=== PATIENT | female | born 1965 | race Caucasian/White ===

== ENCOUNTER 2016-11-17 17:26 | Emergency (ER) | payer SELFPAY ==
--- NOTE | 2016-11-17 19:57 | CT ---
CT OF THE THORACIC SPINE: Date: 11/17/16 COMPARISON: None. HISTORY: Pain. TECHNIQUE: Serial axial CT imaging at 2.5 mm intervals through the thoracic spine without contrast. Coronal and sagittal reformatted imaging obtained. FINDINGS: No significant anterolisthesis or retrolisthesis noted within the thoracic spine. There is an incompletely imaged soft tissue density within the superior mediastinum anteriorly, left of midline, which suggests a substernal thyroid goiter. However, this finding is incompletely image d and thus nonemergent neck CT with IV contrast or nuclear medicine thyroid scan advised. The imaged lung parenchyma demonstrates mild linear scar and/or volume loss within the left lower lo be. Evaluation for central canal and/or neural foraminal stenosis is limited on routine CT. There is no osseous cause of significant central canal stenosis within the thoracic spine. Facet osteophyte form ation on the right noted at T8-9 with mild encroachment on the right neural foramen. No worrisome ly tic or blastic bone lesion. IMPRESSION: No acute osseous abnormality. Incidental findings as detailed above. POS: [facility]
--- NOTE | 2016-11-17 20:03 | CT ---
CERVICAL SPINE CT WITHOUT CONTRAST: Date: 11/17/16 COMPARISON: None. HISTORY: Pain. TECHNIQUE: Serial axial CT imaging at 2.5 mm intervals from skull base through lung apices without contrast. Co kristyn and sagittal reformatted imaging obtained. FINDINGS: Craniocervical junction is intact. Moderate degenerative change at the atlantoaxial interspace noted . No significant anterolisthesis or retrolisthesis noted. The cervicothoracic junction and prevertebra l soft tissues appear grossly unremarkable. The occipital condyles, the dens, and the C1-2 articulat ion appear grossly unremarkable as well. No acute fracture or evidence of dislocation. IMPRESSION: No acute findings. POS: [facility]
--- NOTE | 2016-11-17 21:38 | ERRECORD ---
[facility] EMERGENCY RECORD HPI BACK (20:07 LLDO) CHIEF COMPLAINT: Denies abscess, Denies deformity, Denies drainage from wound, Denies injury, Patient presents for evaluation of pain, Patient presents for evaluation of tenderness, Patient presents for evaluation of see triage note. pain in upper back and neck w/o trauma. several weeks. neck and upper back pains then shoot into both sides of the head. slowlyl worsening. does not recall any trauma. has not been a problem in the past. HISTORIAN: History provided by patient, pt c/o pain, crackling and popping senstion. MECHANISM OF INJURY: No apparent mechanism of injury, No alcohol use associated with this incident, No drug use associated with this incident, No domestic violence associated with this incident, Not work related. LOCATION: Symptoms are localized to the back. QUALITY: Pain is dull in nature, described as aching, described as BECOMES SHARP WITH MOVEMENT OR PALPATION. SEVERITY: Maximum severity of symptoms severe, Currently symptoms are moderate. TIME COURSE: Gradual onset of symptoms, Symptoms are worsening, Symptoms are constant. ASSOCIATED WITH: Associated symptoms reviewed, No associated radiation of pain, No associated sciatica, No associated tingling. EXACERBATED BY: Patient's condition exacerbated by movement, Patient's condition exacerbated by PALPATION. RELIEVED BY: Patient's condition relieved by remaining still. RISK FACTORS: Risk factors reviewed, No malignancy risks identified, Herniated disc risks:, History of herniated disc, No risk factors for thoracic aortic dissection, No abdominal aortic aneurysm risk factors, No epidural bleed risk factors, No epidural abcess risk factors. ROS CONSTITUTIONAL: Negative constitutional review of systems. (20:13 LLDO) EYES: Negative eye review of systems, Historian denies eye pain, denies eye redness, denies eye discharge. (20:18 LLDO) ENT: Negative ears, nose, throat review of systems, Historian denies epistaxis, denies rhinorrhea, denies sinus pain, denies sore throat. (20:18 LLDO) MUSCULOSKELETAL: Historian denies arthralgias, denies back pain, denies deformity, denies fall, denies injury, reports myalgias, reports neck pain. (20:13 LLDO) SKIN: Negative skin review of systems, Historian denies cellulitis, denies rash, denies skin changes, denies skin lesions. (20:18 LLDO) NEUROLOGIC: Historian denies confusion, denies dizziness, denies dysphasia, denies focal weakness, denies gait changes, reports headache, denies irritability, denies lethargy, denies mental status changes, denies paralysis, denies paresthesias, denies seizures, denies sensory changes, denies speech changes, denies tics, denies tremors. (20:13 LLDO) &a-1R&a+25V*p+0X*[id number]*c152B*c15G*c2P*p-0X&a-25V&a+1RName: Nichole Coffey : F51 MedRec: [id number] AcctNum: [id number] Prepared: FriNov 18, 2016 05:43 by Interface Page 1 of 4 pMD [facility] EMERGENCY RECORD HEMO/LYMPHATIC: Normal hematologic/lymphatic system review, Historian denies abnormal blood clotting, denies gum bleeding, denies petechiae. (20:18 LLDO) ALLERGIC/IMMUNOLOGIC: Normal allergy/immunologic system review, Historian denies eczema, denies environmental allergies, denies food allergies. (20:18 LLDO) PSYCHIATRIC: Negative psychiatric review of systems, Historian denies alcohol abuse, denies anxiety, denies depression, denies drug abuse, denies hallucinations. (20:18 LLDO) NOTES: All systems reviewed, negative except as described above. (20:13 LLDO) PAST MEDICAL HISTORY MEDICAL HISTORY: Flu vaccine not up to date, Tetanus not up to date, Pneumococcal vaccine not up to date, Past medical history includes musculoskeletal disorder, CHRONIC HIP PAIN. ARTHRITIS, CHRONIC BACK PAIN, BULGING DISK. (17:48 CJEF) FEMALE SURGICAL HISTORY: Surgical history of hysterectomy. (17:48 CJEF) PSYCHIATRIC HISTORY: No previous psychiatric history. (17:48 CJEF) SOCIAL HISTORY: Patient denies alcohol use, Patient denies drug use, Patient currently uses tobacco, smokes cigarettes, daily, Patient has smoked for 20 years, Patient smokes 1 pack per day, Lives at home, with family, , Patient denies alcohol use, Patient denies drug use, Patient currently uses tobacco, smokes cigarettes, daily. 04-18-15. (17:48 CJEF) NOTES: Nursing records reviewed, Agree with nursing records, Medication list reviewed. (20:17 LLDO) KNOWN ALLERGIES codeine sulfate No Known Allergies (Unconfirmed) No Known Drug Allergies (Unconfirmed) CURRENT MEDICATIONS (17:47 CJEF) traMADol: TABLET : Strength - 50 mg : ORAL Patient Dose: 50 mg Oral 2 times a day.1 TAB IN AM AND 2 TABS AT BEDTIME. VITAL SIGNS VITAL SIGNS: BP: 165/108, Pulse: 81, Resp: 18, Temp: 98.5 (Oral), Pain: 8, O2 sat: 94 on Room Air, Time: 11/17/2016 17:43. (17:43 CJEF) BP: 195/108, Pulse: 72, Resp: 18, Pain: 8, O2 sat: 97 on Room Air, Time: 11/17/2016 18:31. (18:31 CJEF) BP: 158/94, Pulse: 75, Resp: 18, Pain: 8, O2 sat: 97 on Room Air, Time: 11/17/2016 19:18. (19:18 CJEF) BP: 147/80, Pulse: 71, Resp: 18, Pain: 8, O2 sat: 96 on Room Air, Time: 11/17/2016 19:30. (19:30 CJEF) &a-1R&a+25V*p+0X*[id number]*c152B*c15G*c2P*p-0X&a-25V&a+1RName: Nichole Coffey : F51 MedRec: [id number] AcctNum: [id number] Prepared: FriNov 18, 2016 05:43 by Interface Page 2 of 4 pMD [facility] EMERGENCY RECORD BP: 133/85, Pulse: 70, Resp: 18, Pain: 8, O2 sat: 97 on Room Air, Time: 11/17/2016 19:49. (19:49 CJEF) BP: 138/80, Pulse: 75, Resp: 18, O2 sat: 95 on Room Air, Time: 11/17/2016 20:02. (20:02 CJEF) Temp: 98.6 (Oral), Pain: 8, Time: 11/17/2016 20:15. (20:15 CJEF) PHYSICAL EXAM CONSTITUTIONAL: Vital Signs Reviewed, Patient afebrile, Pulse normal, Blood pressure normal, Respiratory rate normal, Patient appears, uncomfortable, Patient appears, in moderate pain distress, Patient alert and oriented to person, place and time, Nursing notes reviewed. (20:15 LLDO) HEAD: Head exam normal, Head exam included findings of head atraumatic, normocephalic. (20:18 LLDO) EYES: pH. (20:15 LLDO) ENT: ENT exam normal, Ear exam normal, Nose exam normal. (20:18 LLDO) NECK: Neck exam included findings of, range of motion limited by pain, Trachea midline, Thyroid normal, no carotid bruits, no meningeal signs, no jugular venous distention, no cervical adenopathy, Tenderness, to the paraspinal muscles. (20:15 LLDO) BACK: Back exam normal, Back exam included findings of normal inspection, range of motion normal. (20:18 LLDO) UPPER EXTREMITY: Upper extremity exam normal, Upper extremity exam included findings of inspection normal, Range of motion normal. (20:18 LLDO) LOWER EXTREMITY: Lower extremity exam normal, Lower extremity exam included findings of inspection normal, Range of motion normal. (20:18 LLDO) NEURO: Neuro exam normal, Neuro exam findings include patient oriented to person, place and time, Speech normal, Mikey coma scale 15. (20:18 LLDO) SKIN: Skin exam normal, Skin exam included findings of skin warm, dry, and normal in color, no rash. (20:18 LLDO) PSYCHIATRIC: Psychiatric exam normal, Psychiatric exam included findings of patient oriented to person place and time, Normal affect. (20:18 LLDO) PROBLEM LIST No recorded problems DIAGNOSIS (20:20 LLDO) FINAL: PRIMARY: CERVICALGIA, ADDITIONAL: Osteoarthritis. PRESCRIPTION (20:22 LLDO) Fiorinal: TABLET : 50 mg-325 mg-40 mg : ORAL : Quantity: 1-2 Unit: tab(s) Route: ORAL Schedule: every 4 hours prn Dispense: 30 Unit: tab(s) May substitute. Refills: 1 . &a-1R&a+25V*p+0X*l0638M*c152B*c15G*c2P*p-0X&a-25V&a+1RName: Erlinda Nichole : F51 MedRec: [id number] AcctNum: [id number] Prepared: FriNov 18, 2016 05:43 by Interface Page 3 of 4 pMD [facility] EMERGENCY RECORD [place]: TABLET : 10 mg-325 mg : ORAL : Quantity: 1 Unit: tab(s) Route: ORAL Schedule: every 4 hours prn Dispense: 30 Unit: tab(s) May substitute. Refills: No Refills POTENTIAL ALLERGY REACTION: 'codeine sulfate [codeine/codeine sulfate]' Override Rationale: Reviewed with patient, pt says can safely take this med. DISPOSITION PATIENT: Disposition Type: Discharge, Disposition: *Discharge Home. (20:20 LLDO) Patient left the department. (20:33 CJANUM) Triplett: CJANUM=POOJA Irby, Denise LLDO=MD Indu, Wolf &a-1R&a+25V*p+0X*[id number]*c152B*c15G*c2P*p-0X&a-25V&a+1RName: Erlinda Nichole : F51 MedRec: [id number] AcctNum: [id number] Prepared: FriNov 18, 2016 05:43 by Interface Page 4 of 4 pMD MTDD
--- NOTE | 2016-11-17 21:48 | PICIS ---
[facility] EMERGENCY RECORD TRIAGE (17:45 CJEF) TRIAGE NOTES: PT REPORTS PAIN THAT STARTED IN BETWEEN THE SHOUDLER BLADES THAT RADIATES TO THE BASE OF HER NECK. PT REPORTS HEADACHE THAT HAS BEEN GOING ON FOR WEEKS. PT ALSO REPORTS THAT SHE HAS PAIN WHEN MOVING HER NECK. (17:45 CJEF) PATIENT: NAME: Nichole Coffey, AGE: 51, GENDER: female, : [facility] 1965, TIME OF GREET: Sun Nov 17, 2016 17:27, PREFERRED LANGUAGE: Czech, ETHNICITY: Not or , FALL RISK: NO, ECODE BILLING MAP: [facility], SSN: [id number], Zip Code: [address], KG WEIGHT: 90.72, PHONE: CELL, , , PERSON ID: [id number], PCP: CHELSIE. (17:45 CJEF) COMPLAINT: NECK PAIN,HEADACHE. (17:45 CJEF) ADMISSION: URGENCY: 4 Non Urgent, ADMISSION SOURCE: Home, TRANSPORT: Walk-in, BED: TRIAGE. (17:45 CJEF) ASSESSMENT: Assessment: HEAD, NECK, AND UPPER BACK PAIN. (17:48 CJEF) PAIN: Patient complains of pain described as, Location HEAD, NECK, AND UPPER BACK. (17:48 CJEF) IMMUNIZATIONS: Flu vaccine not up to date, Tetanus not up to date, Pneumococcal vaccine not up to date. (17:48 CJEF) SIRS SCORING: Heart Rate 55-109 (0), Temp range 96.8-101.1 (0), respiratory rate 12-24 (0), Mental Status altered: no (0), Infection or Suspected Infection: No. (17:48 CJEF) TRIAGE SCREENING: Patient denies suicidal ideation, Patient denies presence of domestic violence. (17:48 CJEF) LMP: LMP: Hysterectomy. (17:48 CJEF) PROVIDERS: TRIAGE NURSE: Denise Irby RN. (17:45 CJEF) VITAL SIGNS: BP 165/108, Pulse 81, Resp 18, Temp 98.5, (Oral), Pain 8, O2 Sat 94, on Room Air, Time 11/17/2016 17:43. (17:43 CJEF) PREVIOUS VISIT ALLERGIES: No Known Drug Allergies. (17:45 CJEF) No Known Drug Allergies. (17:48 CJEF) KNOWN ALLERGIES codeine sulfate No Known Allergies (Unconfirmed) No Known Drug Allergies (Unconfirmed) CURRENT MEDICATIONS (17:47 CJEF) traMADol: TABLET : Strength - 50 mg : ORAL Patient Dose: 50 mg Oral 2 times a day.1 TAB IN AM AND 2 TABS AT BEDTIME. VITAL SIGNS VITAL SIGNS: BP: 165/108, Pulse: 81, Resp: 18, Temp: 98.5 (Oral), Pain: 8, O2 sat: 94 on Room Air, Time: 11/17/2016 17:43. (17:43 CJEF) BP: 195/108, Pulse: 72, Resp: 18, Pain: 8, O2 sat: 97 on Room Air, Time: 11/17/2016 18:31. (18:31 CJEF) BP: 158/94, Pulse: 75, Resp: 18, Pain: 8, O2 sat: 97 on Room Air, Time: &a-1R&a+25V*p+0X*u3104H*c152B*c15G*c2P*p-0X&a-25V&a+1RName: Erlinda Nichole : F51 MedRec: [id number] AcctNum: [id number] Prepared: FriNov 18, 2016 05:49 by Interface Page 1 of 8 pMD [facility] EMERGENCY RECORD 11/17/2016 19:18. (19:18 CJEF) BP: 147/80, Pulse: 71, Resp: 18, Pain: 8, O2 sat: 96 on Room Air, Time: 11/17/2016 19:30. (19:30 CJEF) BP: 133/85, Pulse: 70, Resp: 18, Pain: 8, O2 sat: 97 on Room Air, Time: 11/17/2016 19:49. (19:49 CJEF) BP: 138/80, Pulse: 75, Resp: 18, O2 sat: 95 on Room Air, Time: 11/17/2016 20:02. (20:02 CJEF) Temp: 98.6 (Oral), Pain: 8, Time: 11/17/2016 20:15. (20:15 CJEF) NURSING ASSESSMENT: BACK (17:48 [facility]) CONSTITUTIONAL: Complex assessment performed, Patient arrives ambulatory, Gait steady, History obtained from patient, Patient appears comfortable, Patient cooperative, Patient alert, Oriented to person, place and time, Skin warm, Skin dry, Skin normal in color, Mucous membranes pink, Mucous membranes moist, Patient is well-groomed, PT REPORTS PAIN THAT STARTED IN BETWEEN THE SHOUDLER BLADES THAT RADIATES TO THE BASE OF HER NECK. PT REPORTS HEADACHE THAT HAS BEEN GOING ON FOR WEEKS. PT ALSO REPORTS THAT SHE HAS PAIN WHEN MOVING HER NECK. PAIN: aching pain, to the upper back, UPPER BACK, NECK, AND HEAD PAIN, on a scale 0-10 patient rates pain as 8. BACK: Back assessment findings include tenderness to, bilateral upper back. NECK: Tenderness, diffusely, Pain with range of motion, with extension, with flexion, with rotation to the left, with rotation to the right, Notes: PAIN RADIATES TO HEAD. NOTES: Patient tolerated procedure well. SAFETY: Side rails up, Cart/Stretcher in lowest position, Family at bedside, Call light within reach, Hospital ID band on. NURSING PROCEDURE: DISCHARGE NOTE (20:32 [facility]) DISCHARGE: Patient discharged to home, ambulating without assistance, family driving, accompanied by //partner, Summary of Care printed/ provided, Patient requested and was provided an electronic copy of Discharge Instructions, Transition record given to patient, Discharge instructions given to patient, Simple or moderate discharge teaching performed, Prescriptions given and instructions on side effects given, Medication reconciliation form given, Above person(s) verbalized understanding of discharge instructions and follow-up care, Patient treated and evaluated by physician. BELONGINGS: Belongings remain with patient. NOTES: Patient tolerated procedure well. SAFETY: Side rails up, Cart/Stretcher in lowest position, Family at bedside, Call light within reach, Hospital ID band on. NURSING PROCEDURE: NURSE NOTES NURSES NOTES: Patient in no apparent distress, Patient resting quietly, Notes: PT RESTING IN BED QUIETLY WITH NO DISTRESS &a-1R&a+25V*p+0X*c7488T*c152B*c15G*c2P*p-0X&a-25V&a+1RName: Nihcole Coffey : F51 MedRec: [id number] AcctNum: [id number] Prepared: FriNov 18, 2016 05:49 by Interface Page 2 of 8 pMD [facility] EMERGENCY RECORD NOTED. PT DENIES ANY NEEDS. (19:16 CJEF) Patient in no apparent distress, Patient resting quietly, Notes: PT RESTING IN BED QUIETLY WITH NO DISTRESS NOTED. PT DENIES ANY NEEDS. (19:30 CJEF) Patient in no apparent distress, Patient resting quietly, Notes: PT RESTING IN BED QUIETLY WITH NO DISTRESS NOTED. PT DENIES ANY NEEDS. (19:49 CJEF) Patient in no apparent distress, Patient resting quietly, Notes: PT RESTING IN BED QUIETLY WITH NO DISTRESS NOTED. PT DENIES ANY NEEDS. (20:15 CJEF) NURSING PROCEDURE: TRANSPORT TO TESTS PATIENT IDENTIFIER: Patient actively involved in identification process, Patient's identity verified by patient stating name, Patient's identity verified by patient stating date. (19:00 CJEF) TRANSPORT TO TESTS: Transport indicated to facilitate diagnosis, Patient transported to CT scan, via wheelchair, Accompanied by x-ray water restoration technician. (19:00 CJEF) FOLLOW-UP: After procedure, patient returned to emergency department. (19:13 CJEF) NOTES: Patient tolerated procedure well. (19:00 CJEF) SAFETY: Side rails up, Cart/Stretcher in lowest position, Family at bedside, Call light within reach, Hospital ID band on. (19:00 CJEF) ORDER DETAILS Order Name: CT Cervical Spine WO Con, Status: Active, Time: 18:54 11/17/2016, User: NICK, - Ordered for: MD Griggs Lloyd, - Entered by: MD Griggs Lloyd - Sun Nov 17, 2016 18:54, - Quantity: 1, Order Name: CT Thoracic Spine WO Con, Status: Active, Time: 18:54 11/17/2016, User: NICK, - Ordered for: MD Griggs Lloyd, - Entered by: MD Griggs Lloyd - Sun Nov 17, 2016 18:54, - Quantity: 1. HPI BACK (20:07 LLDO) CHIEF COMPLAINT: Denies abscess, Denies deformity, Denies drainage from wound, Denies injury, Patient presents for evaluation of pain, Patient presents for evaluation of tenderness, Patient presents for evaluation of see triage note. pain in upper back and neck w/o trauma. several weeks. neck and upper back pains then shoot into both sides of the head. slowlyl worsening. does not recall any trauma. has not been a problem in the past. HISTORIAN: History provided by patient, pt c/o pain, crackling and popping senstion. MECHANISM OF INJURY: No apparent mechanism of injury, No alcohol use associated with this incident, No drug use associated with this &a-1R&a+25V*p+0X*n7745Y*c152B*c15G*c2P*p-0X&a-25V&a+1RName: Nichole Coffey : F51 MedRec: [id number] AcctNum: [id number] Prepared: FriNov 18, 2016 05:49 by Interface Page 3 of 8 pMD [facility] EMERGENCY RECORD incident, No domestic violence associated with this incident, Not work related. LOCATION: Symptoms are localized to the back. QUALITY: Pain is dull in nature, described as aching, described as BECOMES SHARP WITH MOVEMENT OR PALPATION. SEVERITY: Maximum severity of symptoms severe, Currently symptoms are moderate. TIME COURSE: Gradual onset of symptoms, Symptoms are worsening, Symptoms are constant. ASSOCIATED WITH: Associated symptoms reviewed, No associated radiation of pain, No associated sciatica, No associated tingling. EXACERBATED BY: Patient's condition exacerbated by movement, Patient's condition exacerbated by PALPATION. RELIEVED BY: Patient's condition relieved by remaining still. RISK FACTORS: Risk factors reviewed, No malignancy risks identified, Herniated disc risks:, History of herniated disc, No risk factors for thoracic aortic dissection, No abdominal aortic aneurysm risk factors, No epidural bleed risk factors, No epidural abcess risk factors. ROS CONSTITUTIONAL: Negative constitutional review of systems. (20:13 LLDO) EYES: Negative eye review of systems, Historian denies eye pain, denies eye redness, denies eye discharge. (20:18 LLDO) ENT: Negative ears, nose, throat review of systems, Historian denies epistaxis, denies rhinorrhea, denies sinus pain, denies sore throat. (20:18 LLDO) MUSCULOSKELETAL: Historian denies arthralgias, denies back pain, denies deformity, denies fall, denies injury, reports myalgias, reports neck pain. (20:13 LLDO) SKIN: Negative skin review of systems, Historian denies cellulitis, denies rash, denies skin changes, denies skin lesions. (20:18 LLDO) NEUROLOGIC: Historian denies confusion, denies dizziness, denies dysphasia, denies focal weakness, denies gait changes, reports headache, denies irritability, denies lethargy, denies mental status changes, denies paralysis, denies paresthesias, denies seizures, denies sensory changes, denies speech changes, denies tics, denies tremors. (20:13 LLDO) HEMO/LYMPHATIC: Normal hematologic/lymphatic system review, Historian denies abnormal blood clotting, denies gum bleeding, denies petechiae. (20:18 LLDO) ALLERGIC/IMMUNOLOGIC: Normal allergy/immunologic system review, Historian denies eczema, denies environmental allergies, denies food allergies. (20:18 LLDO) PSYCHIATRIC: Negative psychiatric review of systems, Historian denies alcohol abuse, denies anxiety, denies depression, denies drug abuse, denies hallucinations. (20:18 LLDO) NOTES: All systems reviewed, negative except as described above. (20:13 LLDO) &a-1R&a+25V*p+0X*y2620K*c152B*c15G*c2P*p-0X&a-25V&a+1RName: Nichole Coffey : F51 MedRec: [id number] AcctNum: [id number] Prepared: FriNov 18, 2016 05:49 by Interface Page 4 of 8 pMD [facility] EMERGENCY RECORD PAST MEDICAL HISTORY MEDICAL HISTORY: Flu vaccine not up to date, Tetanus not up to date, Pneumococcal vaccine not up to date, Past medical history includes musculoskeletal disorder, CHRONIC HIP PAIN. ARTHRITIS, CHRONIC BACK PAIN, BULGING DISK. (17:48 CJEF) FEMALE SURGICAL HISTORY: Surgical history of hysterectomy. (17:48 CJEF) PSYCHIATRIC HISTORY: No previous psychiatric history. (17:48 CJEF) SOCIAL HISTORY: Patient denies alcohol use, Patient denies drug use, Patient currently uses tobacco, smokes cigarettes, daily, Patient has smoked for 20 years, Patient smokes 1 pack per day, Lives at home, with family, , Patient denies alcohol use, Patient denies drug use, Patient currently uses tobacco, smokes cigarettes, daily. 04-18-15. (17:48 [facility]) NOTES: Nursing records reviewed, Agree with nursing records, Medication list reviewed. (20:17 LLDO) PHYSICAL EXAM CONSTITUTIONAL: Vital Signs Reviewed, Patient afebrile, Pulse normal, Blood pressure normal, Respiratory rate normal, Patient appears, uncomfortable, Patient appears, in moderate pain distress, Patient alert and oriented to person, place and time, Nursing notes reviewed. (20:15 LLDO) HEAD: Head exam normal, Head exam included findings of head atraumatic, normocephalic. (20:18 LLDO) EYES: pH. (20:15 LLDO) ENT: ENT exam normal, Ear exam normal, Nose exam normal. (20:18 LLDO) NECK: Neck exam included findings of, range of motion limited by pain, Trachea midline, Thyroid normal, no carotid bruits, no meningeal signs, no jugular venous distention, no cervical adenopathy, Tenderness, to the paraspinal muscles. (20:15 LLDO) BACK: Back exam normal, Back exam included findings of normal inspection, range of motion normal. (20:18 LLDO) UPPER EXTREMITY: Upper extremity exam normal, Upper extremity exam included findings of inspection normal, Range of motion normal. (20:18 LLDO) LOWER EXTREMITY: Lower extremity exam normal, Lower extremity exam included findings of inspection normal, Range of motion normal. (20:18 LLDO) NEURO: Neuro exam normal, Neuro exam findings include patient oriented to person, place and time, Speech normal, [place] coma scale 15. (20:18 LLDO) SKIN: Skin exam normal, Skin exam included findings of skin warm, dry, and normal in color, no rash. (20:18 LLDO) PSYCHIATRIC: Psychiatric exam normal, Psychiatric exam included findings of patient oriented to person place and time, Normal affect. (20:18 LLDO) &a-1R&a+25V*p+0X*z2828W*c152B*c15G*c2P*p-0X&a-25V&a+1RName: Nichole Coffey : F51 MedRec: [id number] AcctNum: [id number] Prepared: FriNov 18, 2016 05:49 by Interface Page 5 of 8 pMD [facility] EMERGENCY RECORD EVENTS TRANSFER: Triage to Emergency Triage. (Petra Nov 17, 2016 17:45 CJEF) Emergency Triage to Main ED -05. (18:00 CJEF) Removed from Emergency Main ED -05. (20:33 CJEF) PROBLEM LIST No recorded problems DIAGNOSIS (20:20 LLDO) FINAL: PRIMARY: CERVICALGIA, ADDITIONAL: Osteoarthritis. DISPOSITION PATIENT: Disposition Type: Discharge, Disposition: *Discharge Home. (20:20 LLDO) Patient left the department. (20:33 CJEF) INSTRUCTION (20:24 LLDO) DISCHARGE: NECK BACK PAIN GENERAL, NECK PAIN, NO TRAUMA. FOLLOWUP: Follow up with Primary Care Physician in 10-14 days. SPECIAL: Follow-up with your PCP. PRESCRIPTION (20:22 LLDO) Fiorinal: TABLET : 50 mg-325 mg-40 mg : ORAL : Quantity: 1-2 Unit: tab(s) Route: ORAL Schedule: every 4 hours prn Dispense: 30 Unit: tab(s) May substitute. Refills: 1 . Ferrum: TABLET : 10 mg-325 mg : ORAL : Quantity: 1 Unit: tab(s) Route: ORAL Schedule: every 4 hours prn Dispense: 30 Unit: tab(s) May substitute. Refills: No Refills POTENTIAL ALLERGY REACTION: 'codeine sulfate [codeine/codeine sulfate]' Override Rationale: Reviewed with patient, pt says can safely take this med. IMAGING (20:34 CJEF) *DISCHARGE INSTRUCTIONS RECEIPT: Image captured from scanner. *SUPPLY CHARGE SHEET: Image captured from scanner. ADMIN (FriNov 18, 2016 05:39 LLDO) DIGITAL SIGNATURE: MD Griggs Lloyd. RESULTS (20:15 CJEF) RADIOLOGY: CT Cervical Spine WO Con Observe DT: Petra Nov 17, 2016 18:56, CSP CERVICAL SPINE CT WITHOUT CONTRAST: &a-1R&a+25V*p+0X*j6611K*c152B*c15G*c2P*p-0X&a-25V&a+1RName: Nichole Coffey DOB: [facility] MedRec: [id number] AcctNum: [id number] Prepared: FriNov 18, 2016 05:49 by Interface Page 6 of 8 D [facility] EMERGENCY RECORD Date: 11/17/16 COMPARISON: None. HISTORY: Pain. TECHNIQUE: Serial axial CT imaging at 2.5 mm intervals from skull base through lung apices without contrast. Co kristyn and sagittal reformatted imaging obtained. FINDINGS: Craniocervical junction is intact. Moderate degenerative change at the atlantoaxial interspace noted . No significant anterolisthesis or retrolisthesis noted. The cervicothoracic junction and prevertebra l soft tissues appear grossly unremarkable. The occipital condyles, the dens, and the C1-2 articulat ion appear grossly unremarkable as well. No acute fracture or evidence of dislocation. IMPRESSION: No acute findings. POS: [facility] . CT Thoracic Spine WO Con Observe DT: Petra Nov 17, 2016 18:56, TSP CT OF THE THORACIC SPINE: Date: 11/17/16 COMPARISON: None. HISTORY: Pain. TECHNIQUE: Serial axial CT imaging at 2.5 mm intervals through the thoracic spine without contrast. Coronal and sagittal reformatted imaging obtained. FINDINGS: &a-1R&a+25V*p+0X*g0497B*c152B*c15G*c2P*p-0X&a-25V&a+1RName: Nichole Coffey : [facility] MedRec: [id number] AcctNum: [id number] Prepared: FriNov 18, 2016 05:49 by Interface Page 7 of 8 D [facility] EMERGENCY RECORD No significant anterolisthesis or retrolisthesis noted within the thoracic spine. There is an incompletely imaged soft tissue density within the superior mediastinum anteriorly, left of midline, which suggests a substernal thyroid goiter. However, this finding is incompletely image d and thus nonemergent neck CT with IV contrast or nuclear medicine thyroid scan advised. The imaged lung parenchyma demonstrates mild linear scar and/or volume loss within the left lower lo be. Evaluation for central canal and/or neural foraminal stenosis is limited on routine CT. There is no osseous cause of significant central canal stenosis within the thoracic spine. Facet osteophyte form ation on the right noted at T8-9 with mild encroachment on the right neural foramen. No worrisome ly tic or blastic bone lesion. IMPRESSION: No acute osseous abnormality. Incidental findings as detailed above. POS: [facility] . Triplett: MARI=POOJA Irby, Denise ROMERO=MD Indu, Wolf &a-1R&a+25V*p+0X*r2461J*c152B*c15G*c2P*p-0X&a-25V&a+1RName: Nichole Coffey : 0 MedRec: [id number] AcctNum: [id number] Prepared: FriNov 18, 2016 05:49 by Interface Page 8 of 8 pMD [facility] MEDICATION RECONCILIATION You were seen in the Emergency Department on: FriNov 17, 2016 KNOWN ALLERGIES codeine sulfate No Known Allergies (Unconfirmed) No Known Drug Allergies (Unconfirmed) HOME MEDICATIONS CONTINUE PRESCRIBED traMADol : TABLET : Strength - 50 mg : ORAL Continue as prescribed Patient had been takin mg Oral 2 times a day. Comment: 1 TAB IN AM AND 2 TABS AT BEDTIME. Notes from the emergency department Reviewed with family Reviewed with patient PRESCRIPTIONS (2) Printed (2) Fiorinal : TABLET : 50 mg-325 mg-40 mg : ORAL Quantity: 1-2, Unit: tab(s), Route: ORAL, Schedule: every 4 hours prn, Dispense: 30 Unit: tab(s) &a-1R&a+25V*p+0X*c6191U*c202B*c15G*c2P*p-0X&a-25V&a+1R Name: Nichole Coffey : 1965 F51 MedRec: [id number] AcctNum: [id number] Prepared: FriNov 18, 2016 05:49 by Interface pMD ABRAM
== END 2016-11-17 20:33 | disposition home or self-care (01) ==
LOC: MADERS 17:26
DX: M47.812 Spondylosis without myelopathy or radiculopathy, cervical region (principal); F17.210 Nicotine dependence, cigarettes, uncomplicated; Z79.899 Other long term (current) drug therapy
CPT/HCPCS: 72125; 72128